=== PATIENT | female | born 1990 | race Caucasian/White ===

== ENCOUNTER 2023-05-07 08:38 | Outpatient (AMB) | payer OTHER, SELFPAY ==
--- NOTE | 2023-05-07 09:06 | MHC.OFFWIV ---
Intake Vital Signs 05/07/23 09:07 Height 5 ft 6 in Weight 184 lb BMI 29.7 BP 112/74 Blood Pressure Location Lt brachial Position Sitting Pulse 71 Pulse Source Pulse Oximeter Temp 96.9 F Temp Source Temporal Artery Scan Pulse Oximetry (%) 98 Oxygen Delivery Method Room Air Intake Visit Reasons: [employer] Sore Throat [phone] Intake Note: Pt is here c/o sore throat for the past two days. Patient Tobacco Use Status: Never used Tobacco Allergies No Known Allergies Allergy (Verified 05/07/23 09:06) Do you need a note to return to daycare/school/sports/work: Yes HPI [employer] Sore Throat [phone] HPI Details 32-year-old female patient presents today with a 3 day history of a sore throat. Reports some mild nasal congestion, however denies any other sick symptoms. Denies any fever, chills, shortness of breath, GI symptoms. Reports she works at a [employer] center, and there have been confirmed cases of strep there. [facility] Social History Patient Tobacco Use Status: Never used Tobacco Review of Systems Const All systems reviewed & are unremarkable except as noted in HPI and below Physical Exam Vital Signs: Last Vital Signs Temp 96.9 F 05/07/23 09:07 Pulse 71 05/07/23 09:07 BP 112/74 05/07/23 09:07 Pulse Ox 98 05/07/23 09:07 Oxygen Delivery Method Room Air 05/07/23 09:07 BMI result Body Mass Index 29.7 Const General: cooperative, healthy appearing, comfortable and no acute distress HEENT Head: Yes normal to inspection Ears: hearing grossly normal bilaterally General nose exam: Normal external nose present Face and sinus: Yes normal facial exam Mouth: Normal oral and palatal mucosa present and moist mucous membranes Throat: Yes posterior oropharynx abnormal (Mild erythema) Neck Neck: Yes no lymphadenopathy Resp Effort & Inspection: normal respiratory effort and able to speak in complete sentences Skin General skin exam: no rashes or lesions noted Extrem General: Yes capillary refill normal and Yes no clubbing, cyanosis or edema Psych Appearance: grossly normal Mental Status: mental status grossly normal Speech and movement: Normal speech and movement present Results AMB Rapid Strep AMB Rapid Strep Negative Last Edit by KUSH Guerrero on 05/07/23 09:25 Results Reviewed Results Reviewed: Laboratory Last Values Strep Scn Rapid Clinic Negative 05/07/23 09:24 Assessment & Plan Assessment & Plan (1) Pharyngitis: Code(s): J02.9 - Acute pharyngitis, unspecified Qualifiers: Pharyngitis/tonsillitis etiology: unspecified etiology Qualified Code(s): J02.9 - Acute pharyngitis, unspecified Plan: Patient has pharyngitis without other symptoms. Rapid strep in the office was negative, however she has been exposed to positive strep cases at her work place. I will prescribe her penicillin regimen for strep pharyngitis, however advised that she wait a day or so, and see how she feels as this may be a viral illness. I advised her to increase hydration, use throat lozenges shot/sprays as needed, and Tylenol/Motrin p.r.n.. She may begin antibiotics at her discretion. We reviewed indications, use, possible side effects of this. She requests only 7 day course. I advised she follow-up with us or with PCP if she does not improve with treatment, or if new symptoms develop. She verbalizes understanding and agrees to plan. Orders: Orders AMB Rapid Strep Screen Today Z13.9 - Encounter for screening, unspecified Medications: New penicillin V potassium 500 mg PO TID 21 tabs 0RF 7 days J02.9 - Acute pharyngitis, unspecified Coding Level of Care Code Est Pt Level 3 (65413) Diagnoses Pharyngitis, unspecified etiology J02.9 Pharyngitis/tonsillitis etiology: unspecified etiology
[2023-05-07 09:07] VITALS: BP 112/74; PULSE 71; TEMP 36.1; O2SAT 98; BMI 29.7
== END 2023-05-07 09:51 | disposition home or self-care (01) ==
PROVIDERS: PCP Pediatrics; Visit Provider Nurse Practitioner Family
DX: J02.9 Acute pharyngitis, unspecified (principal)
CPT/HCPCS: 87880; 99213